=== PATIENT | male | born 1975 | race Caucasian/White ===

== ENCOUNTER 2016-08-18 21:08 | Emergency (ER) | payer SELFPAY ==
[~2016-08-18] VITALS: Ht 177.8 cm; Wt 99.6 kg
[~2016-08-18 21:08] MED LIST: CHLO25 PO; WELL150T PO
[2016-08-18 21:23] VITALS: BP 147/106; PULSE 108; RESP 18; TEMP 98.2; O2SAT 98
[2016-08-18] MEDS ORDERED: DIAZ5 PO (21:31)
[2016-08-18] MEDS ORDERED: CHLO25CA2 PO (21:41)
--- NOTE | 2016-08-18 21:41 | PD ---
HPI Chief Complaint: Alcohol/Drug Intoxication Time Seen by Provider: 21:23 Travel History International Travel<30 days: No Contact w/Intl Traveler<30days: No Traveled to known affect area: No History of Present Illness HPI To 41-year-old man presents emergent [place] of occult withdrawal symptoms. He states he's had trouble with alcoholism for the past 5 years or so since he is . He states she has periods lasting months of sobriety punctuated by of relapses. He's been drinking daily for the past month or so. States he wants to quit. He has a new job his insurance kicks in in August 27 is to start seeing a psychiatrist then. He's been treated for withdrawal before and had some Valium left over these been taken the past several days to help with her withdrawal symptoms. He ran out and drank some today. His moods been up and down. He emphatically denies any suicidal thoughts or homicidal thoughts. He does not own a gun. He does live by himself but he states his sister is around and is a source of support for him. 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 No other complaints. History Past Medical History Narrative Medical Alcoholism Gastric bypass Tetanus Vaccination: Unknown Influenza Vaccination: No Social History Alcohol Use: Yes (DAILY 04/30 5th vodka. quit 08/16/16) Tobacco Use: Yes (1 PPD) Allergies-Medications (Allergen,Severity, Reaction): Coded Allergies: No Known Allergies (Unverified , 12/05/15) Reported Meds & Prescriptions Reported Meds & Active Scripts Active Reported Valium (Diazepam) 5 Mg Tab 5 Mg PO DAILY Review of Systems Except as stated in HPI: all other systems reviewed are Neg Physical Exam Narrative GENERAL: Well-appearing 41-year-old man, tearful at times, no acute distress. SKIN: Warm and dry. CARDIOVASCULAR: Warm and well perfused. RESPIRATORY: Normal rate and effort. MUSCULOSKELETAL: No obvious deformities. NEUROLOGICAL: Awake and alert. No gross deficits. Psychological: Tearful at times. Congruent mood and affect. No evidence of psychosis. Insight and judgment appear good. No SI, no HI. Data Data Last Documented VS Vital Signs Date Time Temp Pulse Resp B/P Pulse Ox O2 Delivery O2 Flow Rate FiO2 08/18/16 21:23 98.2 108 18 147/106 98 MDM Medical Decision Making Medical Screen Exam Complete: Yes Emergency Medical Condition: Yes Differential Diagnosis Alcohol withdrawal, anxiety depression, substance induced mood disorder, other Narrative Course Medical decision making This a 41-year-old male presents emergency department cleaning of occult withdrawal symptoms. Symptoms are fairly mild. Does have some tachycardia. Minimal tremors. He looks well. He appears a good insight and judgment. He is trying to stay off alcohol. On August 27 she's can have insurance is been trying to follow-up with psychiatrist then. He has reasonable social support. He is not homicidal or suicidal. He's done well with Librium in the past. We' ll give him a small prescription for Librium, take as needed, and don't take before work. Return for any worsening symptoms. He is agreeable. Diagnosis Primary Impression: Alcohol withdrawal Patient Instructions: General Instructions Additional Instructions: Take Librium as prescribed. Follow-up with [facility] or private psychiatrist in the next several days. Return to the emergency department for any worsening depression thoughts, thoughts of hurting herself, or any other new or worsening symptoms. Med/Other Pt SpecificInfo: Prescription(s) given Scripts Chlordiazepoxide 25 Mg Cap25 Mg PO TID PRN (WITHDRAWAL) #15 CAP Ref 0 Prov:Aaron Jones MD 08/18/16 Disposition: 01 DISCHARGE HOME Condition: Stable Aaron Jones MD Aug 18, 2016 21:41
== END 2016-08-18 21:57 | disposition home or self-care (01) ==
LOC: PHED 21:08
DX: F10.239 Alcohol dependence with withdrawal, unspecified (principal); R00.0 Tachycardia, unspecified; G25.2 Other specified forms of tremor; F17.210 Nicotine dependence, cigarettes, uncomplicated; Z98.84 Bariatric surgery status
CPT/HCPCS: 99284

== ENCOUNTER 2017-06-21 13:30 | Inpatient (IN) | payer BC ==
[~2017-06-21] VITALS: Ht 172.7 cm; Wt 105.3 kg
[~2017-06-21 13:30] MED LIST changes: -CHLO25 PO; +CYCL10TA PO; +GABA600T PO; +HEPARIN-D5W 25,000 U/250 ML 250 ML IV PRN; -WELL150T PO
[2017-06-21 14:30] VITALS: BP 150/84; PULSE 95; RESP 24; TEMP 99.4; O2SAT 99
[2017-06-21 14:32] VITALS: O2SAT 98
[2017-06-21 15:17] LABS: HEMATOCRIT 34.6 % (39.0-51.0); HEMOGLOBIN 11.4 GM/DL (13.0-17.0); MEAN CELL VOLUME 85.1 FL (80.0-100.0); MEAN CORPUSCULAR HGB CONC 32.9 % (32.0-36.0); MEAN PLATELET VOLUME 7.3 FL (7.0-11.0); PLATELET COUNT 406 TH/MM3 (150-450); RED BLOOD COUNT 4.07 MIL/MM3 (4.50-5.90); RED CELL DISTRIBUTION WIDTH 19.9 % (11.6-17.2); WHITE BLOOD COUNT 11.1 TH/MM3 (4.0-11.0)
--- NOTE | 2017-06-21 15:31 | HHI.HP ---
[facility] Primary Care Physician Unknown Admission Diagnosis Diagnoses: Chief Complaint: chest pain Travel History International Travel<30 Days: No Contact w/Intl Traveler <30 Da: No History of Present Illness 41 y/o WM admitted for pulmonary emboli. Pt was in his [place] until the last 3-4 wks ago when he began experiencing some back pain and chest pain. He did develop some shortness of breath that was intermittent. He noted his chest pain was 10/10 from last night; pain is pleuritic in nature. Pt denies any recent travels or sedentary activity. Denies any hx of cancer or VTEs in the past. Review of Systems Except as stated in HPI: all other systems reviewed are Neg Past Family Social History Past Medical History none Allergies: Coded Allergies: No Known Allergies (Unverified Allergy, Unknown, 06/21/17) Family History no family hx of cancer or pulmonary emboli or DVT Social History lifelong hx of smoker, past usage of THC Physical Exam Vital Signs Vital Signs Date Time Temp Pulse Resp B/P (MAP) Pulse Ox O2 Delivery O2 Flow Rate FiO2 06/21/17 14:32 98 Nasal Cannula 2.00 06/21/17 14:30 99.4 95 24 150/84 (106) 99 Physical Exam V/S stable; afebrile GENERAL: This is a well-nourished, well-developed patient, in no apparent distress. SKIN: No rashes, ecchymoses or lesions. Cool and dry. HEAD: Atraumatic. Normocephalic. EYES: Extraocular motions intact. No scleral icterus. No injection or drainage. NECK: Trachea midline. No JVD or lymphadenopathy. Supple, nontender, no meningeal signs. CARDIOVASCULAR: Regular rate and rhythm without murmurs, gallops, or rubs. RESPIRATORY: Clear to auscultation. Breath sounds equal bilaterally. No wheezes , rales, or rhonchi. GASTROINTESTINAL: Abdomen soft, non-tender, nondistended. MUSCULOSKELETAL: Extremities without clubbing, cyanosis, or edema. NEUROLOGICAL: Awake and alert. Adequate muscle bulk and tone for age and habitus. Caprini VTE Risk Assessment Caprini VTE Risk Assessment: Mod/High Risk (score >= 2) Caprini Risk Assessment Model Point Value = 1 Point Value = 2 Point Value = 3 Point Value = 5 Age 41-60 Minor surgery BMI > 25 kg/m2 Swollen legs Varicose veins or History of unexplained or recurrent spontaneous Oral contraceptives or hormone replacement Sepsis (< 1 month) Serious lung disease, including pneumonia (< 1 month) Abnormal pulmonary function Acute myocardial infarction Congestive heart failure (< 1 month) History of inflammatory bowel disease Medical patient at bed rest Age 61-74 Arthroscopic surgery Major open surgery (> 45 min) Laparoscopic surgery (> 45 min) Malignancy Confined to bed (> 72 hours) Immobilizing plaster cast Central venous access Age >= 75 History of VTE Family history of VTE Factor V Leiden Prothrombin [id number] Lupus anticoagulant Anticardiolipin antibodies Elevated serum homocysteine Heparin-induced thrombocytopenia Other congenital or acquired thrombophilia Stroke (< 1 month) Elective arthroplasty Hip, pelvis, or leg fracture Acute spinal cord injury (< 1 month) Prophylaxis Regimen Total Risk Factor Score Risk Level Prophylaxis Regimen 0-1 Low Early ambulation 2 Moderate Order ONE of the following: *Sequential Compression Device (SCD) *Heparin 5000 units SQ BID 3-4 Higher Order ONE of the following medications: *Heparin 5000 units SQ TID *Enoxaparin/Lovenox 40 mg SQ daily (WT < 150 kg, CrCl > 30 mL/min) *Enoxaparin/Lovenox 30 mg SQ daily (WT < 150 kg, CrCl > 10-29 mL/min) *Enoxaparin/Lovenox 30 mg SQ BID (WT < 150 kg, CrCl > 30 mL/min) AND/OR *Sequential Compression Device (SCD) 5 or more Highest Order ONE of the following medications: *Heparin 5000 units SQ TID (Preferred with Epidurals) *Enoxaparin/Lovenox 40 mg SQ daily (WT < 150 kg, CrCl > 30 mL/min) *Enoxaparin/Lovenox 30 mg SQ daily (WT < 150 kg, CrCl > 10-29 mL/min) *Enoxaparin/Lovenox 30 mg SQ BID (WT < 150 kg, CrCl > 30 mL/min) AND *Sequential Compression Device (SCD) Assessment and Plan Assessment and Plan chest pain 2/2 bilateral pulmonary emboli - independently reviewed EKG and noted no changes concerning for NH or ischemia ; troponin neg - continue heparin drip - telemetry. Counseled to stop smoking. LLL PNA - I independently reviewed the CT scan and noted a substantial LLL infiltrate. Starting Rocephin and azithromycin heparin anticipate d/c on 06/22 if resp status stable Physician Certification 2 Midnight Certification Type: Admission for Inpatient Services Order for Inpatient Services The services are ordered in accordance with Medicare regulations or non- Medicare payer requirements, as applicable. In the case of services not specified as inpatient-only, they are appropriately provided as inpatient services in accordance with the 2-midnight benchmark. Estimated LOS (days): 3 3 days is the estimated time the patient will need to remain in the hospital, assuming treatment plan goals are met and no additional complications. Post-Hospital Plan: Home Tee Cordova MD Jun 21, 2017 15:31
[2017-06-21 15:32] LABS: INTERNATIONAL NORMALIZED RATIO 1.1 RATIO; PROTHROMBIN TIME - PATIENT 11.3 SEC (9.8-11.6)
[2017-06-21 16:00] VITALS: BP 135/78; PULSE 101; RESP 20; TEMP 100.5; O2SAT 92
[2017-06-21] MEDS: PROMETHAZINE/CODEINE 6.25 MG/10 MG/5 ML CUP PO PRN ×2 (16:41→22:01)
[2017-06-21] MEDS: cefTRIAXone INJ 1,000 MG in SODIUM CHLORIDE 0.9% INJ 100 ML IV SCH (16:43)
[2017-06-21] MEDS: AZITHROMYCIN INJ 500 MG in SODIUM CHLOR 0.9% 250 ML INJ 250 ML IV SCH (16:46)
[2017-06-21 20:00] VITALS: BP 134/82; PULSE 119; RESP 20; TEMP 102.3; O2SAT 95
[2017-06-21] MEDS: ACETAMINOPHEN 325 MG TAB PO PRN (22:02)
[2017-06-22] VITALS (12 sets, daily range): BP systolic 116–137; BP diastolic 69–84; PULSE 92–108; RESP 20; TEMP 98.9–101.4; O2SAT 92–96
[2017-06-22] MEDS: HEPARIN 25,000 UNITS-D5W 250 ML - PREMIX IV SCH ×3 (00:40→14:18)
[2017-06-22] MEDS: PROMETHAZINE/CODEINE 6.25 MG/10 MG/5 ML CUP PO PRN ×4 (03:52→23:43)
[2017-06-22] MEDS: ACETAMINOPHEN 325 MG TAB PO PRN ×3 (05:27→19:45)
[2017-06-22] MEDS ORDERED: LORazepam 1 MG TAB PO PRN (07:00)
[2017-06-22] MEDS ORDERED: FLUMAZENIL 0.5 MG/5 ML VIAL IV PUSH PRN (07:00)
[2017-06-22] MEDS ORDERED: LORazepam 2 MG TAB PO PRN (07:00)
[2017-06-22] MEDS ORDERED: LORazepam 2 MG/ML VIAL IV PUSH PRN ×4 (07:00)
[2017-06-22 10:15] LABS: BLOOD, URINE NEG (NEG); GLUCOSE,URINE 100 mg/dL (NEG); KETONE, URINE 15 mg/dL (NEG); NITRITE,URINE NEG (NEG); PH, URINE 5.5 (5.0-8.5); URINE LEUKOCYTE ESTERASE NEG (NEG)
[2017-06-22 11:23] LABS: BILIRUBIN, URINE NEG (NEG); RBC, URINE 0-3 /hpf (0-3); SQUAMOUS EPITHELIAL CELL URINE 0-5 /hpf (0-5); URINE COLOR YELLOW (YELLW/STRAW)
[2017-06-22 13:29] LABS: AUTOMATED NEUTROPHIL # 8.4 TH/MM3 (1.8-7.7); BASOPHIL # 0.2 TH/MM3 (0-0.2); BASOPHIL % 2.2 % (0.0-2.0); EOSINOPHIL # 0.4 TH/MM3 (0-0.4); EOSINOPHIL % 3.9 % (0.0-4.0); HEMATOCRIT 33.1 % (39.0-51.0); HEMOGLOBIN 10.4 GM/DL (13.0-17.0); LYMPH % 8.5 % (9.0-44.0); LYMPHOCYTE # 0.9 TH/MM3 (1.0-4.8); MEAN CELL VOLUME 85.4 FL (80.0-100.0); MEAN CORPUSCULAR HEMOGLOBIN 26.9 PG (27.0-34.0); MEAN CORPUSCULAR HGB CONC 31.5 % (32.0-36.0); MEAN PLATELET VOLUME 7.4 FL (7.0-11.0); MONOCYTE # 0.9 TH/MM3 (0-0.9); NEUT % 77.4 % (16.0-70.0); PLATELET COUNT 435 TH/MM3 (150-450); RED BLOOD COUNT 3.88 MIL/MM3 (4.50-5.90); RED CELL DISTRIBUTION WIDTH 19.7 % (11.6-17.2); WHITE BLOOD COUNT 10.8 TH/MM3 (4.0-11.0)
[2017-06-22 13:44] LABS: CHLORIDE 106 MEQ/L (98-107); SODIUM (NA) 139 MEQ/L (136-145)
[2017-06-22 13:49] LABS: ALBUMIN 2.4 GM/DL (3.4-5.0); BLOOD UREA NITROGEN 6 MG/DL (7-18); GLUCOSE,RANDOM 106 MG/DL (74-106)
[2017-06-22 13:52] LABS: ALT (GPT) 13 U/L (12-78); AST (GOT) 19 U/L (15-37); CREATININE 0.78 MG/DL (0.60-1.30); GLOMERULAR FILTRATION RATE 109 ML/MIN (>89)
[2017-06-22 13:54] LABS: TOTAL BILIRUBIN ADULT 0.8 MG/DL (0.2-1.0); TOTAL PROTEIN 6.5 GM/DL (6.4-8.2)
[2017-06-22 13:55] LABS: ALKALINE PHOSPHATASE 219 U/L (45-117)
[2017-06-22] MEDS: ONDANSETRON HCL 4 MG/2 ML VIAL IV PUSH PRN (14:07)
[2017-06-22] MEDS ORDERED: HEPARIN SODIUM - IV 10,000 UNITS/10 ML VIAL IV PUSH PRN (14:15)
[2017-06-22] MEDS: HEPARIN SODIUM - IV 10,000 UNITS/10 ML VIAL IV PUSH PRN (14:15)
--- NOTE | 2017-06-22 16:36 | HHI.PR ---
Subjective Remarks Patient running fever overnight max is 101.4 He reported chest pain 3 out of 10 bilaterally Mild short of breath on walking Objective Vitals Vital Signs Date Time Temp Pulse Resp B/P (MAP) Pulse Ox O2 Delivery O2 Flow Rate FiO2 06/22/17 15:00 98.9 103 20 136/83 (100) 95 06/22/17 13:31 18 06/22/17 11:50 99.5 108 20 132/83 (99) 95 06/22/17 08:00 92 06/22/17 07:50 99.9 95 20 131/69 (89) 92 06/22/17 05:25 101.4 06/22/17 04:00 100.6 102 20 137/84 (101) 95 06/22/17 03:30 100.7 06/22/17 03:17 101 06/22/17 00:00 101.1 108 20 116/69 (85) 93 06/21/17 20:00 102.3 119 20 134/82 (99) 95 I/O 06/21/17 06/21/17 06/21/17 06/22/17 06/22/17 06/22/17 07:00 15:00 23:00 07:00 15:00 23:00 Intake Total 338.3 ml Output Total 775 ml Balance -436.7 ml Intake IV Total 338.3 ml Output Urine Total 775 ml # Voids 1 # Bowel Movements 0 Result Diagram: 06/22/17 1315 06/22/17 1315 Objective Remarks GENERAL: This is a well-nourished, well-developed patient, in no apparent distress. SKIN: No rashes, warm and dry HEAD: Atraumatic. Normocephalic. EYES: Pupils equal round and reactive. Extraocular motions intact. No scleral icterus. ENT: Nose without bleeding, or drainage, Airway patent. NECK: Trachea midline. Supple CARDIOVASCULAR: Regular rate and rhythm without murmurs, gallops, or rubs. RESPIRATORY: Left basilar crackles GASTROINTESTINAL: Abdomen soft, non-tender, nondistended. Positive bowel sounds MUSCULOSKELETAL: Extremities without clubbing, cyanosis, or edema. Pedal pulses appreciated NEUROLOGICAL: Awake and alert. Moves all extremity. Normal speech.no focal neurological deficit A/P Assessment and Plan 41 years old male is admitted with chest pain short of breath Bilateral PE Left lower lobe pneumonia Plan: Continue current care with O2, DuoNeb Continue heparin drip Consult pulmonary Rocephin and Zithromax Monitor clinical improvement Ashly Chavez MD Jun 22, 2017 16:36
[2017-06-22] MEDS: cefTRIAXone INJ 1,000 MG in SODIUM CHLORIDE 0.9% INJ 100 ML IV SCH (17:39)
[2017-06-22] MEDS: AZITHROMYCIN INJ 500 MG in SODIUM CHLOR 0.9% 250 ML INJ 250 ML IV SCH (18:16)
[2017-06-23] VITALS (8 sets, daily range): BP systolic 135–149; BP diastolic 86–97; PULSE 81–106; RESP 14–20; TEMP 98.6–101; O2SAT 94–96
[2017-06-23] MEDS: ACETAMINOPHEN 325 MG TAB PO PRN ×2 (04:41→20:19)
[2017-06-23] MEDS: PROMETHAZINE/CODEINE 6.25 MG/10 MG/5 ML CUP PO PRN ×3 (06:02→18:21)
[2017-06-23 11:23] LABS: AUTOMATED NEUTROPHIL # 8.2 TH/MM3 (1.8-7.7); BASOPHIL # 0.2 TH/MM3 (0-0.2); BASOPHIL % 1.4 % (0.0-2.0); EOSINOPHIL # 0.6 TH/MM3 (0-0.4); EOSINOPHIL % 5.3 % (0.0-4.0); HEMATOCRIT 32.1 % (39.0-51.0); HEMOGLOBIN 10.6 GM/DL (13.0-17.0); LYMPH % 9.6 % (9.0-44.0); MEAN CELL VOLUME 85.1 FL (80.0-100.0); MEAN CORPUSCULAR HEMOGLOBIN 28.3 PG (27.0-34.0); MEAN CORPUSCULAR HGB CONC 33.2 % (32.0-36.0); MONO % 7.5 % (0.0-8.0); MONOCYTE # 0.8 TH/MM3 (0-0.9); NEUT % 76.2 % (16.0-70.0); PLATELET COUNT 498 TH/MM3 (150-450); RED BLOOD COUNT 3.77 MIL/MM3 (4.50-5.90); WHITE BLOOD COUNT 10.8 TH/MM3 (4.0-11.0)
--- NOTE | 2017-06-23 12:47 | MB ---
cc: LYNNETTE CHURCH DATE OF CONSULTATION: 06/23/2017 REASON FOR CONSULTATION: Pulmonary embolism. HISTORY OF PRESENT ILLNESS Mr. Velásquez is a 41-year-old male who was doing well until about 3 or 4 weeks ago when he started developing intermittent chest pains and intermittent shortness of breath, however, last night had become so severe, he had to come to the emergency room. The pain was sharp, increased with breathing and bilateral CT angiogram was undertaken in the emergency room with evidence of bilateral pulmonary emboli. The patient was started on heparin therapy. His chest pain has improved. He denies history of fever, chills, cough or expectoration. No hemoptysis. PAST MEDICAL HISTORY: Denies history of diabetes, hypertension, heart disease. ALLERGIES: None known to medication. FAMILY HISTORY: No history of hypercoagulability. SOCIAL HISTORY: Long smoking history of over 20 pack years. He does not use drugs. He does not drink alcohol. SYSTEM REVIEW: 12 point review of systems as per HPI and past history otherwise negative. PHYSICAL EXAMINATION: The patient is alert. VITAL SIGNS:. Temperature is 98 degrees Fahrenheit. Pulse 88, respiratory rate 20, blood pressure 130/80, oxygen saturation 95% on room air. HEENT: Exam unremarkable. Eyes without icterus. Neck: Without adenopathy or thyroid enlargement. Central trachea. Chest: Without dullness to percussion, clear to auscultation. Cardiac exam: PMI not appreciated. S1-S2 audible. No murmur, no rub. Abdomen: Lax, audible bowel sounds. Extremities: No clubbing, cyanosis or edema. LABORATORY DATA White count 10,000, hemoglobin 10, hematocrit 32, platelets at 498,000, sodium 139, potassium 3.6, BUN 6, creatinine 0.7. IMPRESSION Bilateral pulmonary emboli. No evidence of DVT on examining the patient. PLAN: 1. The patient will be continued on anticoagulant therapy. 2. Hematology consultation for hypercoagulable state. 3. Bilateral lower extremity, ultrasound to rule out DVT. I do thank you for asking me to partake in Mr. Velásquez's care. Lynnette Church MD WWW/PEPE /11:57 AM /12:14 PM
--- NOTE | 2017-06-23 13:18 | RADRPT ---
EXAM DATE/TIME: 06/23/2017 12:19 [place] COMPARISON: No previous studies available for comparison. INDICATIONS : Pulmonary embolism. MEDICAL HISTORY : Gastric bypass. SURGICAL HISTORY : Orthopedic surgery, right knee. ENCOUNTER: Initial ACUITY: 1 day PAIN SCORE: 0/10 LOCATION: Bilateral legs. TECHNIQUE: Venous ultrasound of the left and right leg was performed from the inguinal ligament to the proximal calf. Real-time, color Doppler and spectral tracing, compression and augmentation techniques were us ed. FINDINGS: RIGHT LEG: There is normal compressibility of the deep venous system from the inguinal region to the proximal ca lf. No echogenic clot is seen in the lumen of the common femoral, femoral, popliteal veins. However, there is nonocclusive thrombus in the right posterior tibial vein within the calf.. LEFT LEG: There is normal compressibility of the deep venous system from the inguinal region to the proximal ca lf. No echogenic clot is seen in the lumen of the common femoral, femoral, popliteal veins. There is occlusive thrombus in the left posterior tibial vein within the calf. CONCLUSION: 1. There is bilateral DVT in the posterior tibial veins of the right and left lower extremities withi n the calf. 2. No evidence of DVT above the knee into the pelvis. Abhijit Muro MD on June 23, 2017 at 13:15 Board Certified Radiologist. This report was verified electronically.
--- NOTE | 2017-06-23 13:22 | HHI.PR ---
Subjective Remarks Patient patient ran a fever 101 overnight, still having short of breath on exertion Pulmonary to see patient today Continue on heparin drip and on antibiotic Objective Vitals Vital Signs Date Time Temp Pulse Resp B/P (MAP) Pulse Ox O2 Delivery O2 Flow Rate FiO2 06/23/17 12:00 98.6 98 14 149/97 (114) 95 06/23/17 08:00 98.7 99 16 141/92 (108) 94 06/23/17 04:00 101.0 106 20 139/91 (107) 94 06/23/17 00:00 98.9 93 20 137/86 (103) 96 06/22/17 23:00 100 06/22/17 21:00 95 21 06/22/17 20:00 101.0 106 20 125/83 (97) 96 06/22/17 15:00 98.9 103 20 136/83 (100) 95 06/22/17 13:31 18 I/O 06/22/17 06/22/17 06/22/17 06/23/17 06/23/17 06/23/17 07:00 15:00 23:00 07:00 15:00 23:00 Intake Total 338.3 ml 133 ml 821.5 ml 720 ml Output Total 775 ml 350 ml 725 ml Balance -436.7 ml 133 ml 471.5 ml -5 ml Intake Oral 343 ml 720 ml IV Total 338.3 ml 133 ml 478.5 ml Output Urine Total 775 ml 350 ml 725 ml # Voids 1 1 3 # Bowel Movements 0 1 0 Result Diagram: 06/23/17 1059 06/22/17 1315 Objective Remarks GENERAL: This is a well-nourished, well-developed patient, in no apparent distress. SKIN: No rashes, warm and dry HEAD: Atraumatic. Normocephalic. EYES: Pupils equal round and reactive. Extraocular motions intact. No scleral icterus. ENT: Nose without bleeding, or drainage, Airway patent. NECK: Trachea midline. Supple CARDIOVASCULAR: Regular rate and rhythm without murmurs, gallops, or rubs. RESPIRATORY: Left basilar crackles GASTROINTESTINAL: Abdomen soft, non-tender, nondistended. Positive bowel sounds MUSCULOSKELETAL: Extremities without clubbing, cyanosis, or edema. Pedal pulses appreciated NEUROLOGICAL: Awake and alert. Moves all extremity. Normal speech.no focal neurological deficit A/P Assessment and Plan 41 years old male is admitted with chest pain short of breath Bilateral PE Left lower lobe pneumonia Plan: Continue current care with O2, DuoNeb Continue heparin drip, probably switch to one of the NOAC at discharge Patient pulmonary consultation recommended bilateral lower extremity ultrasound which showed below-knee DVT bilaterally, hematology consultation placed Rocephin and Zithromax Monitor clinical improvement Discharge Planning When fever resolved, he will need to be on anticoagulation after discharge Ashly Chavez MD Jun 23, 2017 13:22
[2017-06-23] MEDS: cefTRIAXone INJ 1,000 MG in SODIUM CHLORIDE 0.9% INJ 100 ML IV SCH (16:04)
[2017-06-23] MEDS: HEPARIN SODIUM - IV 10,000 UNITS/10 ML VIAL IV PUSH PRN (16:09)
[2017-06-23] MEDS: HEPARIN 25,000 UNITS-D5W 250 ML - PREMIX IV SCH (16:16)
[2017-06-23] MEDS: AZITHROMYCIN INJ 500 MG in SODIUM CHLOR 0.9% 250 ML INJ 250 ML IV SCH (16:56)
--- NOTE | 2017-06-23 17:33 | MB ---
cc: PRABHU BARRETT DATE OF CONSULTATION 06/23/2017 REASON FOR CONSULTATION Patient with unprovoked pulmonary embolism. Recommendations for anticoagulation and to assess for hypercoagulable state. CHIEF COMPLAINT Chest pain and shortness of breath. 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 He became progressively short of breath over the past 3 weeks. He was also having intermittent cough which was exacerbated at night. He says that he had difficult time "catching his breath". He presented to the emergency room where a Doppler ultrasound of lower extremity was obtained which showed bilateral DVTs in the posterior tibial veins of the right and left lower extremities within the calf. There is no evidence of DVT above the knee into the pelvis. He also had a CT angiogram which showed extensive bilateral pulmonary emboli. The patient was started on heparin drip. He has a past medical history of more than 20 pack-years of tobacco abuse. He states that he started smoking cigarettes when he was in 9th grade. His only other medication is Gabapentin which he takes for peripheral neuropathy. 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 The patient has not had any recent prolonged car or air travel. He is not taking any supplements or herbs. He is not taking any exogenous testosterone. He states that he is quite active. He does not have any family history of blood disorders / blood clots such as DVT or PE. His brothers and sisters are healthy and they do not have any blood clots or any history of PE of DVT. REVIEW OF SYSTEMS A comprehensive review of systems was completed which is negative except as described in HPI. PAST MEDICAL HISTORY 1. Peripheral neuropathy. 2. History of tobacco abuse. 3. History of knee surgery in 2012. FAMILY HISTORY The family history was reviewed and there is no history of any malignancies, pulmonary emboli, DVT, etc. SOCIAL HISTORY He has more than 25 pack-years of smoking history. He has used marijuana in the past. No other illicit drug use. 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 MEDICATIONS 1. Heparin GTT. 2. Zofran. 3. Ativan. 4. Tylenol. 5. Azithromycin. 6. Ceftriaxone. 7. Phenergan. ALLERGIES NO KNOWN DRUG ALLERGIES. LABORATORY DATA WBC 10.8, hemoglobin 10.6, MCV 85.1, platelet count 498. Serum chemistries show sodium 139, potassium 3.6, chloride 106, CO2 24, anion gap of 9, BUN is 6, creatinine is 0.78, GFR is 109, lactic acid is 0.7, calcium is 8. Total bilirubin is 0.8, AST is 19, ALT 13. Alkaline phos is 219. Troponins are less than 0.02. Albumin is 2.4. IMAGING STUDIES Imaging was reviewed and documented as above in the HPI. ASSESSMENT/PLAN This is a 41-year-old male with a past medical history of tobacco abuse, history of peripheral neuropathy and history of knee surgery who presents to the emergency department with a 3-week history of progressive dyspnea, cough and chest discomfort. 1. Bilateral pulmonary embolism as well as bilateral lower extremity thromboses involving the right and lower extremity tibial veins. The precipitating factors include tobacco abuse. He has not had any recent prolonged car or air travel. He is not any medications that would cause hypercoagulability. He has not taking exogenous testosterone. Under these circumstances, I would recommend indefinite anticoagulation. We will obtain a hypercoagulable workup, however, some of the workup cannot be completed at this time since the results will be unreliable while he is on heparin and has acute thrombosis. We can reliably check for factor V Leiden, antiphospholipid antibodies, prothrombin mutation, ALBERT and homocysteine levels. We will defer testing for anti III deficiency, activated protein C resistance, protein C and S again, these will be deferred. The findings on the hypercoagulable workup will not management trainee program stores at this time. I would recommend anticoagulation with Eliquis. I have discussed this with the patient at length. His parents were also present during this conversation. I have strongly urged him to abstain from smoking cigarettes. The risks of further expansion/development of PE and DVT and a risk of cancer was also discussed with the patient. I would recommend starting Eliquis at 10 milligrams twice daily for 7 days followed by 5 mg twice daily. The patient should follow up in the hematology clinic with me in 4-6 weeks. The patient is cleared to be discharged from a hematology standpoint once he is deemed stable. 2. Tobacco abuse counseling was done. 3. History of the knee surgery. 4. History of restless leg currently on Gabapentin. Thank you for allowing me to participate in the care of this patient. MD TONNY Ramos/SEBASTIAN /4:33 PM /4:58 PM [facility]
[2017-06-23] MEDS ORDERED: LORA-474 PO (17:55)
[2017-06-23] MEDS: ONDANSETRON HCL 4 MG/2 ML VIAL IV PUSH PRN (20:21)
[2017-06-24] VITALS (8 sets, daily range): BP systolic 120–157; BP diastolic 82–103; PULSE 76–113; RESP 14–20; TEMP 96–101; O2SAT 93–97
[2017-06-24] MEDS: PROMETHAZINE/CODEINE 6.25 MG/10 MG/5 ML CUP PO PRN ×3 (00:12→13:05)
[2017-06-24] MEDS ORDERED: ACETAMINOPHEN/HYDROcodone 325 MG/5 MG TAB PO ONE (00:45)
[2017-06-24] MEDS: HEPARIN 25,000 UNITS-D5W 250 ML - PREMIX IV SCH ×2 (04:40→15:48)
[2017-06-24 06:07] LABS: AUTOMATED NEUTROPHIL # 6.8 TH/MM3 (1.8-7.7); BASOPHIL % 0.3 % (0.0-2.0); EOSINOPHIL # 0.7 TH/MM3 (0-0.4); EOSINOPHIL % 7.1 % (0.0-4.0); HEMATOCRIT 32.1 % (39.0-51.0); HEMOGLOBIN 10.4 GM/DL (13.0-17.0); LYMPH % 20.1 % (9.0-44.0); LYMPHOCYTE # 2.1 TH/MM3 (1.0-4.8); MEAN CELL VOLUME 85.2 FL (80.0-100.0); MEAN CORPUSCULAR HEMOGLOBIN 27.7 PG (27.0-34.0); MEAN CORPUSCULAR HGB CONC 32.5 % (32.0-36.0); MEAN PLATELET VOLUME 7.2 FL (7.0-11.0); MONO % 8.7 % (0.0-8.0); MONOCYTE # 0.9 TH/MM3 (0-0.9); NEUT % 63.8 % (16.0-70.0); PLATELET COUNT 500 TH/MM3 (150-450); RED BLOOD COUNT 3.77 MIL/MM3 (4.50-5.90); RED CELL DISTRIBUTION WIDTH 18.5 % (11.6-17.2); WHITE BLOOD COUNT 10.5 TH/MM3 (4.0-11.0)
[2017-06-24] MEDS: ONDANSETRON HCL 4 MG/2 ML VIAL IV PUSH PRN (06:09)
[2017-06-24] MEDS ORDERED: GABA800T PO (07:46)
[2017-06-24] MEDS ORDERED: TRAM50 PO (07:58)
[2017-06-24] MEDS: traMADol HCL 50 MG TAB PO SCH ×3 (08:45→20:37)
[2017-06-24] MEDS: ACETAMINOPHEN 325 MG TAB PO PRN ×2 (09:07→20:37)
[2017-06-24] MEDS: LORazepam 1 MG TAB PO SCH ×2 (09:08→20:37)
[2017-06-24] MEDS: GABAPENTIN 400 MG CAP PO SCH ×2 (09:08→20:36)
[2017-06-24] MEDS ORDERED: APIXABAN 5 MG TABLET PO SCH ×2 (12:00→21:00)
--- NOTE | 2017-06-24 12:21 | HHI.PR ---
Subjective Remarks 41 y/o WM admitted for pulmonary emboli. Pt was in his USOH until the last 3-4 wks ago when he began experiencing some back pain and chest pain. He did develop some shortness of breath that was intermittent. He noted his chest pain was 10/10 from last night; pain is pleuritic in nature. Pt denies any recent travels or sedentary activity. Denies any hx of cancer or VTEs in the past. 06-22 Patient running fever overnight max is 101.4 He reported chest pain 3 out of 10 bilaterally Mild short of breath on walking 06-23 Patient patient ran a fever 101 overnight, still having short of breath on exertion Pulmonary to see patient today Continue on heparin drip and on antibiotic 06-24 STILL HAVING FEVERS SWITCH TO ELIQUIS 5MG PO BID STARTING TODAY DW RN AND PT AND CM AM LABS Add DuDon's incentive spirometry and Mucinex Objective Vitals Vital Signs Date Time Temp Pulse Resp B/P (MAP) Pulse Ox O2 Delivery O2 Flow Rate FiO2 06/24/17 08:00 99.6 113 14 120/103 (109) 95 06/24/17 04:00 99.5 88 20 131/82 (98) 95 06/24/17 00:00 98.8 83 20 123/82 (96) 95 06/23/17 23:00 81 06/23/17 20:00 94 21 06/23/17 20:00 101.0 94 20 135/87 (103) 96 06/23/17 16:00 99.7 98 16 145/86 (105) 94 06/23/17 15:00 106 I/O 06/23/17 06/23/17 06/23/17 06/24/17 06/24/17 06/24/17 07:00 15:00 23:00 07:00 15:00 23:00 Intake Total 720 ml 531.5 ml 480 ml Output Total 725 ml 900 ml Balance -5 ml 531.5 ml -420 ml Intake Oral 720 ml 60 ml 480 ml IV Total 471.5 ml Output Urine Total 725 ml 900 ml # Voids 3 4 4 # Bowel Movements 0 1 0 Result Diagram: 06/24/17 0510 06/22/17 1315 Other Results Laboratory Tests Test 06/21/17 15:08 06/21/17 21:58 06/22/17 06:44 06/22/17 10:05 White Blood Count 11.1 TH/MM3 Red Blood Count 4.07 MIL/MM3 Hemoglobin 11.4 GM/DL Hematocrit 34.6 % Mean Corpuscular Volume 85.1 FL Mean Corpuscular Hemoglobin 28.0 PG Mean Corpuscular Hemoglobin Concent 32.9 % Red Cell Distribution Width 19.9 % Platelet Count 406 TH/MM3 Mean Platelet Volume 7.3 FL Prothrombin Time 11.3 SEC Prothromb Time International Ratio 1.1 RATIO Activated Partial Thromboplast Time 37.4 SEC 37.5 SEC 42.0 SEC Urine Collection Type CLEAN CATCH Urine Color YELLOW Urine Turbidity CLEAR Urine pH 5.5 Urine Specific [place] 1.001 Urine Protein NEG mg/dL Urine Glucose (UA) 100 mg/dL Urine Ketones 15 mg/dL Urine Occult Blood NEG Urine Nitrite NEG Urine Bilirubin NEG Urine Leukocyte Esterase NEG Urine RBC 0-3 /hpf Urine Squamous Epithelial Cells 0-5 /hpf Microscopic Urinalysis Comment CULT NOT INDICATED Urine Collection Time 10:05 Test 06/22/17 13:15 06/22/17 19:53 06/23/17 08:14 06/23/17 10:59 White Blood Count 10.8 TH/MM3 10.8 TH/MM3 Red Blood Count 3.88 MIL/MM3 3.77 MIL/MM3 Hemoglobin 10.4 GM/DL 10.6 GM/DL Hematocrit 33.1 % 32.1 % Mean Corpuscular Volume 85.4 FL 85.1 FL Mean Corpuscular Hemoglobin 26.9 PG 28.3 PG Mean Corpuscular Hemoglobin Concent 31.5 % 33.2 % Red Cell Distribution Width 19.7 % 20.0 % Platelet Count 435 TH/MM3 498 TH/MM3 Mean Platelet Volume 7.4 FL 7.0 FL Neutrophils (%) (Auto) 77.4 % 76.2 % Lymphocytes (%) (Auto) 8.5 % 9.6 % Monocytes (%) (Auto) 8.0 % 7.5 % Eosinophils (%) (Auto) 3.9 % 5.3 % Basophils (%) (Auto) 2.2 % 1.4 % Neutrophils # (Auto) 8.4 TH/MM3 8.2 TH/MM3 Lymphocytes # (Auto) 0.9 TH/MM3 1.0 TH/MM3 Monocytes # (Auto) 0.9 TH/MM3 0.8 TH/MM3 Eosinophils # (Auto) 0.4 TH/MM3 0.6 TH/MM3 Basophils # (Auto) 0.2 TH/MM3 0.2 TH/MM3 CBC Comment DIFF FINAL DIFF FINAL Differential Comment Activated Partial Thromboplast Time 39.2 SEC 41.4 SEC 44.4 SEC Blood Urea Nitrogen 6 MG/DL Creatinine 0.78 MG/DL Random Glucose 106 MG/DL Total Protein 6.5 GM/DL Albumin 2.4 GM/DL Calcium Level 8.0 MG/DL Alkaline Phosphatase 219 U/L Aspartate Amino Transf (AST/SGOT) 19 U/L Alanine Aminotransferase (ALT/SGPT) 13 U/L Total Bilirubin 0.8 MG/DL Sodium Level 139 MEQ/L Potassium Level 3.6 MEQ/L Chloride Level 106 MEQ/L Carbon Dioxide Level 24.0 MEQ/L Anion Gap 9 MEQ/L Estimat Glomerular Filtration Rate 109 ML/MIN Lactic Acid Level 0.7 mmol/L Test 06/23/17 15:02 06/23/17 18:43 06/23/17 20:54 06/24/17 03:30 Activated Partial Thromboplast Time 39.4 SEC 47.7 SEC 38.9 SEC Test 06/24/17 05:10 06/24/17 09:20 White Blood Count 10.5 TH/MM3 Red Blood Count 3.77 MIL/MM3 Hemoglobin 10.4 GM/DL Hematocrit 32.1 % Mean Corpuscular Volume 85.2 FL Mean Corpuscular Hemoglobin 27.7 PG Mean Corpuscular Hemoglobin Concent 32.5 % Red Cell Distribution Width 18.5 % Platelet Count 500 TH/MM3 Mean Platelet Volume 7.2 FL Neutrophils (%) (Auto) 63.8 % Lymphocytes (%) (Auto) 20.1 % Monocytes (%) (Auto) 8.7 % Eosinophils (%) (Auto) 7.1 % Basophils (%) (Auto) 0.3 % Neutrophils # (Auto) 6.8 TH/MM3 Lymphocytes # (Auto) 2.1 TH/MM3 Monocytes # (Auto) 0.9 TH/MM3 Eosinophils # (Auto) 0.7 TH/MM3 Basophils # (Auto) 0.0 TH/MM3 CBC Comment DIFF FINAL Differential Comment Activated Partial Thromboplast Time 45.0 SEC Imaging Last Impressions Lower Extremity Ultrasound 06/23/17 0000 Signed Impressions: Service Date/Time: Friday, June 23, 2017 12:19 - CONCLUSION: 1. There is bilateral DVT in the posterior tibial veins of the right and left lower extremities within the calf. 2. No evidence of DVT above the knee into the pelvis. Abhijit Muro MD Objective Remarks GENERAL: And oriented 3 talkative and cooperative alert and oriented SKIN: Warm and dry. HEAD: Atraumatic. Normocephalic. EYES: Pupils equal and round. No scleral icterus. No injection or drainage. Extraocular muscles intact ENT: No nasal bleeding or discharge. Mucous membranes pink and moist. Tongue is midline NECK: Trachea midline. No JVD. Supple CARDIOVASCULAR: Regular rate and rhythm. S1 and S2 no S3 or S4 no heave or thrill or rub or gallop RESPIRATORY: No accessory muscle use. Clear to auscultation. Breath sounds equal bilaterally. GASTROINTESTINAL: Abdomen soft, non-tender, nondistended. Hepatic and splenic margins not palpable. MUSCULOSKELETAL: Extremities without clubbing, cyanosis, or edema. No obvious deformities. NEUROLOGICAL: Awake and alert. No obvious cranial nerve deficits. Motor grossly within normal limits. Five out of 5 muscle strength in the arms and legs. Normal speech. PSYCHIATRIC: Appropriate mood and affect; insight and judgment normal. Procedures NONE Medications and IVs Current Medications Heparin Sodium/ Dextrose 250 ml @ 0 mls/hr TITRATE PRN IV Coagulation Management; Start 06/21/17 at 12:30; Status UNV Heparin Sodium/ Dextrose 250 ml @ 18 mls/hr TITRATE IV Last administered on at 04:40; Start 06/21/17 at 15:00; Stop 06/24/17 at 14:00 Promethazine HCl/ Codeine (Phenergan-Codeine Liq) 5 ml Q6H PRN PO cough Last administered on 06/24/17at 06:10; Start 06/21/17 at 15:30 Ceftriaxone Sodium 1000 mg/ Sodium Chloride 100 ml @ 200 mls/hr Q24H IV Last administered on 06/23/17at 16:04; Start 06/21/17 at 16:00 Azithromycin 500 mg/Sodium Chloride 250 ml @ 250 mls/hr Q24H IV Last administered on 06/23/17at 16:56; Start 06/21/17 at 17:00 Acetaminophen (Tylenol) 650 mg Q4H PRN PO fever > 101/RAMOS Last administered on at 09:07; Start 06/21/17 at 21:30 Flumazenil (Romazicon Inj) 0.2 mg Q1M PRN IV PUSH SEE LABEL COMMENTS; Start at 07:00 Lorazepam (Ativan) 1 mg Q4H PRN PO CIWA 8 - 10 Last administered on 06/23/17at 18:18; Start 06/22/17 at 07:00 Lorazepam (Ativan Inj) 1 mg Q4H PRN IV PUSH CIWA 8 - 10; Start 06/22/17 at 07: 00 Lorazepam (Ativan) 2 mg Q2H PRN PO CIWA 11-14; Start 06/22/17 at 07:00 Lorazepam (Ativan Inj) 2 mg Q2H PRN IV PUSH CIWA 11-14; Start 06/22/17 at 07:00 Lorazepam (Ativan Inj) 2 mg Q1H PRN IV PUSH CIWA 15-20; Start 06/22/17 at 07:00 Lorazepam (Ativan Inj) 2 mg Q15M PRN IV PUSH CIWA > 20; Start 06/22/17 at 07:00 Ondansetron HCl (Zofran Inj) 4 mg Q6HR PRN IV PUSH nausea Last administered on 06/24/17at 06:09; Start 06/22/17 at 13:15 Heparin Sodium (Porcine) (Heparin Inj) 5,000 units UNSCH PRN IV PUSH aPTT less than 25; Start 06/22/17 at 14:15 Heparin Sodium (Porcine) (Heparin Inj) 2,500 units UNSCH PRN IV PUSH aPTT 25 to 39 Last administered on 06/23/17at 16:09; Start 06/22/17 at 14:15 Acetaminophen/ Hydrocodone Bitart ([place] 5-325 Mg) 1 tab ONCE ONCE PO Last administered on 06/24/17at 00:51; Start 06/24/17 at 00:45; Stop 06/24/17 at 00:48 ; Status DC Gabapentin (Neurontin) 800 mg BID PO Last administered on 06/24/17at 09:08; Start 06/24/17 at 09:00 Lorazepam (Ativan) 1 mg BID PO Last administered on 06/24/17at 09:08; Start at 09:00 Tramadol HCl (Ultram) 50 mg Q8HR PO Last administered on 06/24/17at 08:45; Start 06/24/17 at 08:45 Apixaban (Eliquis) 5 mg BID PO ; Start 06/24/17 at 12:00 A/P Problem List: (1) Fever ICD Code: R50.9 - Fever, unspecified (2) Anxiety ICD Code: F41.9 - Anxiety disorder, unspecified (3) Chronic pain ICD Code: G89.29 - Other chronic pain (4) Pneumonia ICD Code: J18.9 - Pneumonia, unspecified organism (5) Pulmonary emboli ICD Code: I26.99 - Other pulmonary embolism without acute cor pulmonale (6) DVT, bilateral lower limbs ICD Code: I82.403 - Acute embolism and thrombosis of unspecified deep veins of lower extremity, bilateral Assessment and Plan 41 years old male is admitted with chest pain short of breath Bilateral PE Bilateral lower extremity DVTs will switch to Eliquis 5 mg by mouth twice a day and transition off heparin drip Left lower lobe pneumonia continue on DuoNeb's with Rocephin and Zithromax Anxiety resume home anxiety medications restart his Ativan History of alcohol abuse continue on CIWA protocol Chronic pain restart his gabapentin Plan: Continue current care with O2, DuoNeb Continue heparin drip, probably switch to one of the NOAC at discharge switch off heparin and transition to Eliquis 5 mg by mouth twice daily Patient pulmonary consultation recommended bilateral lower extremity ultrasound which showed below-knee DVT bilaterally, hematology consultation placed Rocephin and Zithromax Monitor clinical improvement Discharge Planning Await fever improvement Discharge Planning Await fever improvement Wesley Bernard DO Jun 24, 2017 12:21
[2017-06-24] MEDS ORDERED: RESP: ALBUTEROL 2.5 MG/IPRATROPIUM 0.5 MG NEB (PRN) NEB (13:00)
[2017-06-24] MEDS: guaiFENesin E.R. 600 MG TAB PO SCH ×2 (13:02→20:36)
[2017-06-24] MEDS: RESP: ALBUTEROL 2.5 MG/IPRATROPIUM 0.5 MG NEB (SCH) NEB ×2 (15:10→21:06)
[2017-06-24] MEDS: cefTRIAXone INJ 1,000 MG in SODIUM CHLORIDE 0.9% INJ 100 ML IV SCH (15:53)
--- NOTE | 2017-06-24 16:02 | HHI.PR ---
Subjective Remarks ALERT NO SOB HEMATOLOGY NOTE APPRECIATED Objective Vital Signs Date Time Temp Pulse Resp B/P (MAP) Pulse Ox O2 Delivery O2 Flow Rate FiO2 06/24/17 15:13 93 Nasal Cannula 2.00 06/24/17 12:00 96.0 76 16 157/96 (116) 97 06/24/17 12:00 98.6 91 14 142/96 (111) 96 06/24/17 08:00 99.6 113 14 120/103 (109) 95 06/24/17 04:00 99.5 88 20 131/82 (98) 95 06/24/17 00:00 98.8 83 20 123/82 (96) 95 06/23/17 23:00 81 06/23/17 20:00 94 21 06/23/17 20:00 101.0 94 20 135/87 (103) 96 I/O 06/23/17 06/23/17 06/23/17 06/24/17 06/24/17 06/24/17 07:00 15:00 23:00 07:00 15:00 23:00 Intake Total 720 ml 531.5 ml 480 ml Output Total 725 ml 900 ml Balance -5 ml 531.5 ml -420 ml Intake Oral 720 ml 60 ml 480 ml IV Total 471.5 ml Output Urine Total 725 ml 900 ml # Voids 3 4 4 # Bowel Movements 0 1 0 Result Diagram: 06/24/17 0510 06/22/17 1315 Objective Remarks GENERAL: SKIN: Warm and dry. HEAD: Atraumatic. Normocephalic. EYES: Pupils equal and round. No scleral icterus. No injection or drainage. ENT: No nasal bleeding or discharge. Mucous membranes pink and moist. NECK: Trachea midline. No JVD. CARDIOVASCULAR: Regular rate and rhythm. RESPIRATORY: No accessory muscle use. Clear to auscultation. Breath sounds equal bilaterally. GASTROINTESTINAL: Abdomen soft, non-tender, nondistended. Hepatic and splenic margins not palpable. MUSCULOSKELETAL: Extremities without clubbing, cyanosis, or edema. No obvious deformities. NEUROLOGICAL: Awake and alert. No obvious cranial nerve deficits. Motor grossly within normal limits. Five out of 5 muscle strength in the arms and legs. Normal speech. PSYCHIATRIC: Appropriate mood and affect; insight and judgment normal. Assessment and Plan Assessment and Plan PE/DVT PLAN ANTICOAGULATION INCREASE ACTIVITY Lynnette Church MD Jun 24, 2017 16:01
[2017-06-24] MEDS: AZITHROMYCIN INJ 500 MG in SODIUM CHLOR 0.9% 250 ML INJ 250 ML IV SCH (16:44)
--- NOTE | 2017-06-24 19:03 | PD.ONC.PN ---
Subjective Subjective Remarks Patient reports continued difficulty breathing and pain with inspiration especially on the left side along his left shoulder blade. He reports having had a tarry black bowel movement earlier today. Denies noting any overt bleeding. Continues to have fevers of up to 101.5F. Objective Data Date Time Temp Pulse Resp B/P (MAP) Pulse Ox O2 Delivery O2 Flow Rate FiO2 06/24/17 16:00 98.4 89 16 142/94 (110) 96 06/24/17 15:13 93 Nasal Cannula 2.00 06/24/17 12:00 96.0 76 16 157/96 (116) 97 06/24/17 12:00 98.6 91 14 142/96 (111) 96 06/24/17 08:00 99.6 113 14 120/103 (109) 95 06/24/17 04:00 99.5 88 20 131/82 (98) 95 06/24/17 00:00 98.8 83 20 123/82 (96) 95 06/23/17 23:00 81 06/23/17 20:00 94 21 06/23/17 20:00 101.0 94 20 135/87 (103) 96 06/24/17 06/24/17 06/24/17 07:00 15:00 23:00 Intake Total 480 ml 240 ml Output Total 900 ml Balance -420 ml 240 ml Result Diagram: 06/24/17 0510 06/22/17 1315 Laboratory Results Laboratory Tests Test 06/23/17 20:54 06/24/17 03:30 06/24/17 05:10 06/24/17 09:20 Activated Partial Thromboplast Time 47.7 SEC 38.9 SEC 45.0 SEC White Blood Count 10.5 TH/MM3 Red Blood Count 3.77 MIL/MM3 Hemoglobin 10.4 GM/DL Hematocrit 32.1 % Mean Corpuscular Volume 85.2 FL Mean Corpuscular Hemoglobin 27.7 PG Mean Corpuscular Hemoglobin Concent 32.5 % Red Cell Distribution Width 18.5 % Platelet Count 500 TH/MM3 Mean Platelet Volume 7.2 FL Neutrophils (%) (Auto) 63.8 % Lymphocytes (%) (Auto) 20.1 % Monocytes (%) (Auto) 8.7 % Eosinophils (%) (Auto) 7.1 % Basophils (%) (Auto) 0.3 % Neutrophils # (Auto) 6.8 TH/MM3 Lymphocytes # (Auto) 2.1 TH/MM3 Monocytes # (Auto) 0.9 TH/MM3 Eosinophils # (Auto) 0.7 TH/MM3 Basophils # (Auto) 0.0 TH/MM3 CBC Comment DIFF FINAL Differential Comment Test 06/24/17 16:00 Activated Partial Thromboplast Time 42.9 SEC Culture Results Microbiology Date/Time Source Procedure Growth Status 06/21/17 22:05 Blood Peripheral Aerobic Blood Culture - Preliminary NO GROWTH IN 3 DAYS Resulted 06/21/17 22:05 Blood Peripheral Anaerobic Blood Culture - Preliminary NO GROWTH IN 3 DAYS Resulted 06/21/17 21:50 Blood Peripheral Aerobic Blood Culture - Preliminary NO GROWTH IN 3 DAYS Resulted 06/21/17 21:50 Blood Peripheral Anaerobic Blood Culture - Preliminary NO GROWTH IN 3 DAYS Resulted 06/22/17 16:00 Stool Stool Stool Occult Blood (CRISTY) - Final HEMOCCULT NEGATIVE Complete Administered Medications Medications (Trade) Dose Ordered Sig/Zackary Route PRN Reason Start Time Stop Time Status Last Admin Dose Admin Promethazine HCl/ Codeine (Phenergan-Codeine Liq) 5 ml Q6H PRN PO cough 06/21/17 15:30 06/24/17 13:05 Ceftriaxone Sodium 1000 mg/ Sodium Chloride 100 ml @ 200 mls/hr Q24H IV 06/21/17 16:00 06/24/17 15:53 Azithromycin 500 mg/Sodium Chloride 250 ml @ 250 mls/hr Q24H IV 06/21/17 17:00 06/24/17 16:44 Acetaminophen (Tylenol) 650 mg Q4H PRN PO fever > 101/RAMOS 06/21/17 21:30 06/24/17 09:07 Lorazepam (Ativan) 1 mg Q4H PRN PO CIWA 8 - 10 06/22/17 07:00 06/23/17 18:18 Ondansetron HCl (Zofran Inj) 4 mg Q6HR PRN IV PUSH nausea 06/22/17 13:15 06/24/17 06:09 Heparin Sodium (Porcine) (Heparin Inj) 2,500 units UNSCH PRN IV PUSH aPTT 25 to 39 06/22/17 14:15 06/23/17 16:09 Gabapentin (Neurontin) 800 mg BID PO 06/24/17 09:00 2/26/18 09:08 Lorazepam (Ativan) 1 mg BID PO 06/24/17 09:00 06/24/17 09:08 Tramadol HCl (Ultram) 50 mg Q8HR PO 06/24/17 08:45 06/24/17 13:04 Guaifenesin (Mucinex Er) 600 mg BID PO 06/24/17 13:00 06/24/17 13:02 Albuterol/ Ipratropium (Duoneb Neb) 1 ampule Q6HR NEB NEB 06/24/17 16:00 06/24/17 15:10 Objective Remarks GENERAL: Well-nourished, well-developed patient. Young man laying in bed, [place] to be no acute distress, speaks in full sentences. SKIN: Warm and dry. HEAD: Normocephalic. EYES: No scleral icterus. No injection or drainage. NECK: Supple, trachea midline. No JVD or lymphadenopathy. LYMPHATIC: No adenopathy. CARDIOVASCULAR: Prominent heart sounds, S1 and S2 normal murmurs or gallops. RESPIRATORY: Decreased bibasilar breath sounds more pronounced over the left base. GASTROINTESTINAL: Abdomen soft, non-tender, nondistended. Obese belly, postsurgical changes noted. EXTREMITIES: No cyanosis, or edema. MUSCULOSKELETAL: Adequate muscle tone. NEUROLOGICAL: No obvious focal deficit. Awake, alert, and oriented x3. PSYCHIATRIC: Appropriate mood and affect; insight and judgment normal. Assessment/Plan Assessment 41-year-old male presenting with bilateral pulmonary emboli associated or chest pain, found to have lower extremity deep venous thromboses on both sides. Previous history of gastric bypass surgery and right knee surgery (not total knee replacement). Reports having had symptoms of heaviness of his legs and pain waist down going back several months. Has been started on therapeutic anticoagulation with heparin infusion. Was being transitioned to oral Eliquis as of this morning. He reports having had at least one black tarry stool yesterday. Stool for occult blood testing was negative on 06/22/2017. Plan 1. Pulmonary emboli associated deep venous thromboses: Prothrombotic workup is pending at this time. 2. I discontinued heparin drip and start him on Lovenox. 3. Repeat stool for occult blood testing. 4. I will hold Eliquis for now until we confirm no ongoing GI bleeding. 5. Fevers: Likely secondary to pulmonary infarction secondary to pulmonary emboli. Madhu Jernigan MD Jun 24, 2017 19:03
[2017-06-24] MEDS: ENOXAPARIN SODIUM 100 MG/ML SYRINGE SQ SCH (20:38)
[2017-06-25] VITALS (8 sets, daily range): BP systolic 122–146; BP diastolic 77–100; PULSE 77–114; RESP 20–24; TEMP 98.1–99.1; O2SAT 93–97
[2017-06-25] MEDS: RESP: ALBUTEROL 2.5 MG/IPRATROPIUM 0.5 MG NEB (SCH) NEB ×3 (04:00→20:00)
[2017-06-25] MEDS: traMADol HCL 50 MG TAB PO SCH ×3 (06:01→20:52)
[2017-06-25 07:07] LABS: AUTOMATED NEUTROPHIL # 6.4 TH/MM3 (1.8-7.7); BASOPHIL # 0.1 TH/MM3 (0-0.2); BASOPHIL % 1.5 % (0.0-2.0); EOSINOPHIL # 0.7 TH/MM3 (0-0.4); EOSINOPHIL % 7.7 % (0.0-4.0); HEMATOCRIT 32.2 % (39.0-51.0); HEMOGLOBIN 10.4 GM/DL (13.0-17.0); LYMPH % 17.9 % (9.0-44.0); LYMPHOCYTE # 1.7 TH/MM3 (1.0-4.8); MEAN CELL VOLUME 85.6 FL (80.0-100.0); MEAN CORPUSCULAR HEMOGLOBIN 27.6 PG (27.0-34.0); MEAN CORPUSCULAR HGB CONC 32.2 % (32.0-36.0); MEAN PLATELET VOLUME 7.4 FL (7.0-11.0); MONO % 7.1 % (0.0-8.0); MONOCYTE # 0.7 TH/MM3 (0-0.9); NEUT % 65.8 % (16.0-70.0); PLATELET COUNT 609 TH/MM3 (150-450); RED BLOOD COUNT 3.76 MIL/MM3 (4.50-5.90); RED CELL DISTRIBUTION WIDTH 19.8 % (11.6-17.2); WHITE BLOOD COUNT 9.6 TH/MM3 (4.0-11.0)
[2017-06-25 07:16] LABS: CHLORIDE 108 MEQ/L (98-107); SODIUM (NA) 142 MEQ/L (136-145)
[2017-06-25 07:27] LABS: ALBUMIN 2.3 GM/DL (3.4-5.0)
[2017-06-25 07:28] LABS: BICARBONATE 25.3 MEQ/L (21.0-32.0); BLOOD UREA NITROGEN 8 MG/DL (7-18); CALCIUM 8.1 MG/DL (8.5-10.1); GLUCOSE,RANDOM 82 MG/DL (74-106); MAGNESIUM 2.1 MG/DL (1.5-2.5)
[2017-06-25 07:30] LABS: ALT (GPT) 19 U/L (12-78); AST (GOT) 18 U/L (15-37)
[2017-06-25 07:31] LABS: CREATININE 0.72 MG/DL (0.60-1.30); GLOMERULAR FILTRATION RATE 120 ML/MIN (>89); PHOSPHORUS 3.9 MG/DL (2.5-4.9); TOTAL BILIRUBIN ADULT 0.3 MG/DL (0.2-1.0); TOTAL PROTEIN 6.5 GM/DL (6.4-8.2)
[2017-06-25 07:32] LABS: ALKALINE PHOSPHATASE 183 U/L (45-117)
[2017-06-25] MEDS: LORazepam 1 MG TAB PO SCH ×2 (08:48→20:53)
[2017-06-25] MEDS: GABAPENTIN 400 MG CAP PO SCH ×2 (08:48→20:52)
[2017-06-25] MEDS: guaiFENesin E.R. 600 MG TAB PO SCH ×2 (08:48→20:52)
[2017-06-25] MEDS: ENOXAPARIN SODIUM 100 MG/ML SYRINGE SQ SCH ×2 (08:49→20:53)
[2017-06-25] MEDS: PROMETHAZINE/CODEINE 6.25 MG/10 MG/5 ML CUP PO PRN ×2 (08:49→17:07)
[2017-06-25] MEDS ORDERED: RESP: ALBUTEROL 2.5 MG/IPRATROPIUM 0.5 MG NEB (PRN) NEB (09:15)
[2017-06-25 10:03] LABS: FREE T4 1.14 NG/DL (0.76-1.46)
--- NOTE | 2017-06-25 14:21 | ECHRPT ---
Indication: sob bilateral pulm emb CONCLUSIONS Normal left ventricular size. Estimated ejection fraction 60-65%. The left atrial size is mildly dilated. Mild mitral valve regurgitation. There is mild tricuspid valve regurgitation. The estimated pulmonary arterial pressure is 46 mmHg. BP: / HR: Rhythm: MEASUREMENTS (Male / Female) Normal Values Technical Quality:Good 2D ECHO LV Diastolic Diameter PLAX 5.1 cm 4.2 - 5.9 / 3.9 - 5.3 cm LV Systolic Diameter PLAX 3.6 cm IVS Diastolic Thickness 1.3 cm 0.6 - 1.0 / 0.6 - 0.9 cm LVPW Diastolic Thickness 1.2 cm 0.6 - 1.0 / 0.6 - 0.9 cm LV Relative Wall Thickness 0.5 RV Internal Dim ED PLAX 3.5 cm M-MODE Aortic Root Diameter MM 3.3 cm LA Systolic Diameter MM 4.6 cm LA Ao Ratio MM 1.4 AV Cusp Separation MM 2.0 cm DOPPLER Mitral E Point Velocity 81.9 cm/s Mitral A Point Velocity 74.0 cm/s Mitral E to A Ratio 1.1 LV E' Lateral Velocity 9.8 cm/s Mitral E to LV E' Lateral Ratio 8.4 LV E' Septal Velocity 8.7 cm/s Mitral E to LV E' Septal Ratio 9.4 TR Peak Velocity 299.0 cm/s TR Peak Gradient 35.8 mmHg Right Atrial Pressure 10.0 mmHg Pulmonary Artery Systolic Pressu 45.8 mmHg Right Ventricular Systolic Press 45.8 mmHg FINDINGS LEFT VENTRICLE Normal left ventricular size. The left ventricular systolic function is normal with an estimated ejection fraction in the range of 60-65%. RIGHT VENTRICLE Normal right ventricular size and systolic function. LEFT ATRIUM The left atrial size is mildly dilated. 4.6 cm RIGHT ATRIUM The right atrial size is normal. ATRIAL SEPTUM Normal atrial septal thickness without atrial level shunting by limited color doppler interrogation. AORTA The aortic root and proximal ascending aorta are normal in size on limited imaging. MITRAL VALVE Structurally normal mitral valve. Mild mitral valve regurgitation. AORTIC VALVE Trileaflet aortic valve. No aortic valve stenosis or regurgitation. TRICUSPID VALVE Structurally normal tricuspid valve. There is mild tricuspid valve regurgitation. The estimated pulmonary arterial pressure is 45.8 mmHg. PULMONARY VALVE No pulmonary valve regurgitation or stenosis. VESSELS The inferior vena cava is normal in size. PERICARDIUM No pericardial effusion. Subha Gordon MD, FACC (Electronically Signed) Final Date:25 June 2017 14:20
[2017-06-25 15:44] LABS: HEMOGLOBIN A1C 5.3 % (4.3-6.0)
[2017-06-25] MEDS: cefTRIAXone INJ 1,000 MG in SODIUM CHLORIDE 0.9% INJ 100 ML IV SCH (17:07)
--- NOTE | 2017-06-25 17:12 | PD.ONC.PN ---
Subjective Subjective Remarks Denies any bleeding. Feels better. Still has pain with respiration on L lower lung. Objective Data Date Time Temp Pulse Resp B/P (MAP) Pulse Ox O2 Delivery O2 Flow Rate FiO2 06/25/17 14:23 95 21 06/25/17 12:00 98.5 82 20 134/82 (99) 95 06/25/17 08:16 87 06/25/17 08:00 99.0 95 24 146/100 (115) 93 06/25/17 07:01 18 06/25/17 04:00 84 06/25/17 04:00 98.4 113 20 134/91 (105) 95 06/25/17 00:00 98.1 108 20 122/77 (92) 94 06/24/17 21:08 96 21 06/24/17 20:00 84 06/24/17 20:00 101.0 109 20 133/85 (101) 94 06/25/17 06/25/17 06/25/17 07:00 15:00 23:00 Intake Total 240 ml 300 ml Output Total 400 ml Balance 240 ml -100 ml Result Diagram: 06/25/17 0543 06/25/17 0543 Laboratory Results Laboratory Tests Test 06/25/17 05:43 White Blood Count 9.6 TH/MM3 Red Blood Count 3.76 MIL/MM3 Hemoglobin 10.4 GM/DL Hematocrit 32.2 % Mean Corpuscular Volume 85.6 FL Mean Corpuscular Hemoglobin 27.6 PG Mean Corpuscular Hemoglobin Concent 32.2 % Red Cell Distribution Width 19.8 % Platelet Count 609 TH/MM3 Mean Platelet Volume 7.4 FL Neutrophils (%) (Auto) 65.8 % Lymphocytes (%) (Auto) 17.9 % Monocytes (%) (Auto) 7.1 % Eosinophils (%) (Auto) 7.7 % Basophils (%) (Auto) 1.5 % Neutrophils # (Auto) 6.4 TH/MM3 Lymphocytes # (Auto) 1.7 TH/MM3 Monocytes # (Auto) 0.7 TH/MM3 Eosinophils # (Auto) 0.7 TH/MM3 Basophils # (Auto) 0.1 TH/MM3 CBC Comment AUTO DIFF Differential Comment AUTO DIFF CONFIRMED Platelet Estimate HIGH Platelet Morphology Comment NORMAL Blood Urea Nitrogen 8 MG/DL Creatinine 0.72 MG/DL Random Glucose 82 MG/DL Total Protein 6.5 GM/DL Albumin 2.3 GM/DL Calcium Level 8.1 MG/DL Phosphorus Level 3.9 MG/DL Magnesium Level 2.1 MG/DL Alkaline Phosphatase 183 U/L Aspartate Amino Transf (AST/SGOT) 18 U/L Alanine Aminotransferase (ALT/SGPT) 19 U/L Total Bilirubin 0.3 MG/DL Sodium Level 142 MEQ/L Potassium Level 3.3 MEQ/L Chloride Level 108 MEQ/L Carbon Dioxide Level 25.3 MEQ/L Anion Gap 9 MEQ/L Estimat Glomerular Filtration Rate 120 ML/MIN Hemoglobin A1c 5.3 % Free Thyroxine 1.14 NG/DL Thyroid Stimulating Hormone 3rd Gen 1.450 uIU/ML Culture Results Microbiology Date/Time Source Procedure Growth Status 06/25/17 15:58 Stool Stool Stool Occult Blood (CRISTY) Pending Received Administered Medications Medications (Trade) Dose Ordered Sig/Zackary Route PRN Reason Start Time Stop Time Status Last Admin Dose Admin Promethazine HCl/ Codeine (Phenergan-Codeine Liq) 5 ml Q6H PRN PO cough 06/21/17 15:30 06/25/17 08:49 Ceftriaxone Sodium 1000 mg/ Sodium Chloride 100 ml @ 200 mls/hr Q24H IV 06/21/17 16:00 06/24/17 15:53 Azithromycin 500 mg/Sodium Chloride 250 ml @ 250 mls/hr Q24H IV 06/21/17 17:00 06/24/17 16:44 Acetaminophen (Tylenol) 650 mg Q4H PRN PO fever > 101/RAMOS 06/21/17 21:30 06/24/17 20:37 Lorazepam (Ativan) 1 mg Q4H PRN PO CIWA 8 - 10 06/22/17 07:00 06/23/17 18:18 Ondansetron HCl (Zofran Inj) 4 mg Q6HR PRN IV PUSH nausea 06/22/17 13:15 06/24/17 06:09 Gabapentin (Neurontin) 800 mg BID PO 06/24/17 09:00 06/25/17 08:48 Lorazepam (Ativan) 1 mg BID PO 06/24/17 09:00 06/25/17 08:48 Tramadol HCl (Ultram) 50 mg Q8HR PO 06/24/17 08:45 06/25/17 12:56 Guaifenesin (Mucinex Er) 600 mg BID PO 06/24/17 13:00 06/25/17 08:48 Enoxaparin Sodium (Lovenox Inj) 100 mg Q12H SQ 06/24/17 22:00 06/25/17 08:49 Objective Remarks GENERAL: Well-nourished, well-developed patient. Young man laying in bed. HEAD: Normocephalic. EYES: No scleral icterus. No injection or drainage. NECK: Supple, trachea midline. No JVD or lymphadenopathy. LYMPHATIC: No adenopathy. CARDIOVASCULAR: Prominent heart sounds, S1 and S2 normal murmurs or gallops. RESPIRATORY: Decreased bibasilar breath sounds more pronounced over the left base. GASTROINTESTINAL: Abdomen soft, non-tender, nondistended. Obese belly, postsurgical changes noted. EXTREMITIES: No cyanosis, or edema. MUSCULOSKELETAL: R knee osteoarthritic changes, prominent area from old injury. No swelling. NEUROLOGICAL: No obvious focal deficit. Awake, alert, and oriented x3. PSYCHIATRIC: Appropriate mood and affect; insight and judgment normal. Assessment/Plan Problem List: (1) Anemia, iron deficiency ICD Codes: D50.9 - Iron deficiency anemia, unspecified Status: Chronic Plan: h/o bypass surgery, check ferritin and B12 Poor absorption of iron. Noted anemia and reactive thrombocytosis Treat nutritional deficiency (2) DVT, bilateral lower limbs ICD Codes: I82.403 - Acute embolism and thrombosis of unspecified deep veins of lower extremity, bilateral Status: Acute Plan: Described events prior to dx. 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 Noted US finding. Agree with anticoagulation therapy atleast 6 months. Discussed at length the options for anticoagulant therapy Assessment 41-year-old male presenting with bilateral pulmonary emboli associated or chest pain, found to have lower extremity deep venous thromboses on both sides. Previous history of gastric bypass surgery and right knee surgery (not total knee replacement). Reports having had symptoms of heaviness of his legs and pain waist down going back several months. Has been started on therapeutic anticoagulation with heparin infusion. Was being transitioned to oral Eliquis as of this morning. He reports having had at least one black tarry stool yesterday. Stool for occult blood testing was negative on 06/22/2017. Plan 1. Pulmonary emboli associated deep venous thromboses: Prothrombotic workup is pending at this time. 2. Continue Lovenox, transition to Coumadin 3. Check B12 and ferritin 4. Give information on Coumadin 5. Follow up with Dr. Jernigan as out pt. Lindsey Granger MD Jun 25, 2017 17:12
[2017-06-25] MEDS: ONDANSETRON HCL 4 MG/2 ML VIAL IV PUSH PRN (17:57)
[2017-06-25] MEDS: AZITHROMYCIN INJ 500 MG in SODIUM CHLOR 0.9% 250 ML INJ 250 ML IV SCH (17:57)
--- NOTE | 2017-06-25 19:02 | HHI.PR ---
Subjective Remarks ALERT NO SOB Objective Vital Signs Date Time Temp Pulse Resp B/P (MAP) Pulse Ox O2 Delivery O2 Flow Rate FiO2 06/25/17 16:00 99.0 77 20 133/94 (107) 95 06/25/17 14:23 95 21 06/25/17 13:56 18 06/25/17 12:00 98.5 82 20 134/82 (99) 95 06/25/17 08:16 87 06/25/17 08:00 99.0 95 24 146/100 (115) 93 06/25/17 04:00 84 06/25/17 04:00 98.4 113 20 134/91 (105) 95 06/25/17 00:00 98.1 108 20 122/77 (92) 94 06/24/17 21:08 96 21 06/24/17 20:00 84 06/24/17 20:00 101.0 109 20 133/85 (101) 94 I/O 06/24/17 06/24/17 06/24/17 06/25/17 06/25/17 06/25/17 07:00 15:00 23:00 07:00 15:00 23:00 Intake Total 480 ml 240 ml 240 ml 300 ml Output Total 900 ml 400 ml Balance -420 ml 240 ml 240 ml -100 ml Intake Oral 480 ml 240 ml 240 ml 300 ml Output Urine Total 900 ml 400 ml # Voids 4 3 2 2 1 # Bowel Movements 0 0 1 Result Diagram: 06/25/17 0543 06/25/17 0543 Objective Remarks GENERAL: SKIN: Warm and dry. HEAD: Atraumatic. Normocephalic. EYES: Pupils equal and round. No scleral icterus. No injection or drainage. ENT: No nasal bleeding or discharge. Mucous membranes pink and moist. NECK: Trachea midline. No JVD. CARDIOVASCULAR: Regular rate and rhythm. RESPIRATORY: No accessory muscle use. Clear to auscultation. Breath sounds equal bilaterally. GASTROINTESTINAL: Abdomen soft, non-tender, nondistended. Hepatic and splenic margins not palpable. MUSCULOSKELETAL: Extremities without clubbing, cyanosis, or edema. No obvious deformities. NEUROLOGICAL: Awake and alert. No obvious cranial nerve deficits. Motor grossly within normal limits. Five out of 5 muscle strength in the arms and legs. Normal speech. PSYCHIATRIC: Appropriate mood and affect; insight and judgment normal. Assessment and Plan Assessment and Plan PE/DVT PLAN ANTICOAGULATION INCREASE ACTIVITY OK FOR D/C AM IF STABLE Lynnette Church MD Jun 25, 2017 19:02
[2017-06-25 22:03] LABS: FERRITIN 177 NG/ML (26-388)
--- NOTE | 2017-06-25 22:35 | HHI.PR ---
Subjective Remarks Nursing denies any deterioration since last night. Patient did have a temp of 101 at 8 PM last night. However he says he feels fine otherwise. Says his shortness of breath and chest pain are much improved. Denies any further black tarry stools in the last 24 hours. Objective Vital Signs Date Time Temp Pulse Resp B/P (MAP) Pulse Ox O2 Delivery O2 Flow Rate FiO2 06/25/17 20:00 94 21 06/25/17 20:00 99.1 114 20 129/91 (104) 97 06/25/17 16:00 99.0 77 20 133/94 (107) 95 06/25/17 14:23 95 21 06/25/17 13:56 18 06/25/17 12:00 98.5 82 20 134/82 (99) 95 06/25/17 08:16 87 06/25/17 08:00 99.0 95 24 146/100 (115) 93 06/25/17 04:00 84 06/25/17 04:00 98.4 113 20 134/91 (105) 95 06/25/17 00:00 98.1 108 20 122/77 (92) 94 I/O 06/24/17 06/24/17 06/24/17 06/25/17 06/25/17 06/25/17 07:00 15:00 23:00 07:00 15:00 23:00 Intake Total 480 ml 240 ml 240 ml 300 ml 650 ml Output Total 900 ml 400 ml Balance -420 ml 240 ml 240 ml -100 ml 650 ml Intake Oral 480 ml 240 ml 240 ml 300 ml 300 ml IV Total 350 ml Output Urine Total 900 ml 400 ml # Voids 4 3 2 2 3 # Bowel Movements 0 0 2 Result Diagram: 06/25/17 0543 06/25/17 0543 Objective Remarks Coarse breath sounds bilaterally, unlabored breathing, no acute distress, no cyanosis A/P Assessment and Plan Bilateral pulmonary emboli and bilateral DVT -Lovenox to be continued for now given possibility of GI bleed. Discussed case with hematology, to repeat stool Hemoccult, if negative and h/h stable, patient can be discharged. Fevers have not recurred since last night, hematology suspects this was due to possible pulmonary infarction. Left lower lobe pneumonia, continue Rocephin and Zithromax, blood cultures have been negative Tee Cordova MD Jun 25, 2017 22:35
[2017-06-26 04:00] VITALS: BP 138/92; PULSE 80; RESP 16; TEMP 98.1; O2SAT 94
[2017-06-26] MEDS: traMADol HCL 50 MG TAB PO SCH ×2 (06:01→14:07)
[2017-06-26 07:50] VITALS: BP 126/82; PULSE 100; RESP 20; TEMP 96; O2SAT 93
[2017-06-26] MEDS: RESP: ALBUTEROL 2.5 MG/IPRATROPIUM 0.5 MG NEB (SCH) NEB ×2 (08:00→14:00)
[2017-06-26] MEDS: guaiFENesin E.R. 600 MG TAB PO SCH (08:57)
[2017-06-26] MEDS: GABAPENTIN 400 MG CAP PO SCH (08:57)
[2017-06-26] MEDS: LORazepam 1 MG TAB PO SCH (08:57)
[2017-06-26] MEDS: ONDANSETRON HCL 4 MG/2 ML VIAL IV PUSH PRN (08:57)
[2017-06-26] MEDS: PROMETHAZINE/CODEINE 6.25 MG/10 MG/5 ML CUP PO PRN (08:57)
[2017-06-26] MEDS: ENOXAPARIN SODIUM 100 MG/ML SYRINGE SQ SCH (08:58)
[2017-06-26 09:03] VITALS: PULSE 63
[2017-06-26] MEDS ORDERED: POTASSIUM CHLORIDE 10 MEQ CONTROLLED RELEASE TAB PO ONE (11:00)
[2017-06-26] MEDS ORDERED: ENOX100P SQ (11:04)
[2017-06-26 11:51] VITALS: BP 135/82; PULSE 97; RESP 20; TEMP 97.8; O2SAT 93
[2017-06-26] MEDS ORDERED: WARF-23 PO (11:59)
[2017-06-26] MEDS ORDERED: CEFD300C PO (11:59)
--- NOTE | 2017-06-26 11:59 | HHI.DCPOC ---
Discharge Care Plan Diagnosis: (1) Pulmonary emboli (2) DVT, bilateral lower limbs (3) Pneumonia (4) Encounter for monitoring coumadin therapy Additional Problems Have your regular doctor or bonded strand operator check your INR results within 3-5 days and adjust your Coumadin dose as warranted. Goals to Promote Your Health * To prevent worsening of your condition and complications * To maintain your health at the optimal level Directions to Meet Your Goals Take your medications as prescribed Follow your dietary instruction Follow activity as directed Keep your appointments as scheduled Take your immunizations and boosters as scheduled If your symptoms worsen call your PCP, if no PCP go to Urgent Care Center or Emergency Room Smoking is Dangerous to Your Health. Avoid second hand smoke Call the 24-hour hour crisis hotline for domestic abuse at Tee Cordova MD Jun 26, 2017 11:59
--- NOTE | 2017-06-26 13:20 | HHI.DS ---
Discharge Summary Admission Date Jun 21, 2017 at 13:40 Discharge Date: Jun 26, 2017 Admitting Diagnosis bilateral pulmonary emboli (1) Fever ICD Code: R50.9 - Fever, unspecified (2) Anxiety ICD Code: F41.9 - Anxiety disorder, unspecified (3) Chronic pain ICD Code: G89.29 - Other chronic pain (4) Pneumonia ICD Code: J18.9 - Pneumonia, unspecified organism (5) Pulmonary emboli ICD Code: I26.99 - Other pulmonary embolism without acute cor pulmonale (6) DVT, bilateral lower limbs ICD Code: I82.403 - Acute embolism and thrombosis of unspecified deep veins of lower extremity, bilateral Status: Acute Procedures NONE Brief History - From Admission 41 y/o WM admitted for pulmonary emboli. Pt was in his USOH until the last 3-4 wks ago when he began experiencing some back pain and chest pain. He did develop some shortness of breath that was intermittent. He noted his chest pain was 10/10 from last night; pain is pleuritic in nature. Pt denies any recent travels or sedentary activity. Denies any hx of cancer or VTEs in the past. CBC/BMP: 06/25/17 0543 06/25/17 0543 Significant Findings Laboratory Tests Test 06/23/17 15:02 06/23/17 18:43 06/23/17 20:54 06/24/17 03:30 Activated Partial Thromboplast Time 39.4 SEC (24.3-30.1) 47.7 SEC (24.3-30.1) 38.9 SEC (24.3-30.1) Test 06/24/17 05:10 06/24/17 09:20 06/24/17 16:00 06/25/17 05:43 Red Blood Count 3.77 MIL/MM3 (4.50-5.90) 3.76 MIL/MM3 (4.50-5.90) Hemoglobin 10.4 GM/DL (13.0-17.0) 10.4 GM/DL (13.0-17.0) Hematocrit 32.1 % (39.0-51.0) 32.2 % (39.0-51.0) Red Cell Distribution Width 18.5 % (11.6-17.2) 19.8 % (11.6-17.2) Platelet Count 500 TH/MM3 (150-450) 609 TH/MM3 (150-450) Monocytes (%) (Auto) 8.7 % (0.0-8.0) Eosinophils (%) (Auto) 7.1 % (0.0-4.0) 7.7 % (0.0-4.0) Eosinophils # (Auto) 0.7 TH/MM3 (0-0.4) 0.7 TH/MM3 (0-0.4) Activated Partial Thromboplast Time 45.0 SEC (24.3-30.1) 42.9 SEC (24.3-30.1) Platelet Estimate HIGH (NORMAL) Albumin 2.3 GM/DL (3.4-5.0) Calcium Level 8.1 MG/DL (8.5-10.1) Alkaline Phosphatase 183 U/L (45-117) Potassium Level 3.3 MEQ/L (3.5-5.1) Chloride Level 108 MEQ/L (98-107) Test 06/25/17 20:30 Imaging Last Impressions Lower Extremity Ultrasound 06/23/17 0000 Signed Impressions: Service Date/Time: Friday, June 23, 2017 12:19 - CONCLUSION: 1. There is bilateral DVT in the posterior tibial veins of the right and left lower extremities within the calf. 2. No evidence of DVT above the knee into the pelvis. Abhijit Muro MD PE at Discharge Coarse breath sounds bilaterally, unlabored breathing, no acute distress, no cyanosis Hospital Course Patient was admitted, started on anticoagulation for PEs and abx for PNA. He was also found to have bilateral lower extremity DVTs. He reported having some black tarry stools while inpatient but 2 Hemoccults were negative. Hematology was consulted and initiated a hypercoagulable workup and transition the patient to Lovenox. Patient remained afebrile afterwards and his blood cultures remained negative. He is tolerating p.o. intake well and his hemoglobin remained stable. He was counseled and transitioned to the Lovenox plus Coumadin regimen upon discharge. Patient was extensively counseled on the importance of Coumadin follow-up especially given that he will be on antibiotics for his pneumonia. He was educated on appropriate Lovenox dosing technique to administer himself at home for the first 5 days post discharge. Pt Condition on Discharge: Stable Discharge Disposition: Discharge Home Discharge Time: > 30 minutes Discharge Instructions DIET: Follow Instructions for: Coumadin (Warfarin) Diet Activities you can perform: Weight Bearing as Marcos Follow up Referrals: Oncology/Hematology - 3-5 Days with Madhu Jernigan MD PCP Follow-up - 3-5 Days New Medications: Cefdinir (Cefdinir) 300 Mg Cap 600 MG PO DAILY for Infection, #7 CAP 0 Refills Warfarin (Warfarin) 5 Mg Tab 5 MG PO DIRECTED for Blood Clot Prevention, #30 TAB 0 Refills 1 pill po daily for 5 days, then contact PCP for further dosing Enoxaparin Inj (Lovenox Inj) 100 Mg/Ml Syr 100 MG SQ Q12H for emboli, #12 INJECTION Continued Medications: Gabapentin (Gabapentin) 800 Mg Tab 800 MG PO BID, TAB 0 Refills Lorazepam (Ativan) 1 Mg Tab 1 MG PO BID, TAB 0 Refills Tramadol (Ultram) 50 Mg Tab 50 MG PO Q8H for Pain Management, TAB 0 Refills Tee Cordova MD Jun 26, 2017 13:20
[2017-06-26 14:58] VITALS: RESP 18
[2017-06-26 19:53] LABS: DRVVT 1:1 MIX ND (CORRECTED); DRVVT CONFIRM NEGATIVE (NEGATIVE); HEXAGONAL PHASE CONFIRM POSITIVE (NEGATIVE)
[2017-06-27 03:52] LABS: BETA2-GLYCOPROTEIN IGA <9 SAU (< OR = 20); BETA2-GLYCOPROTEIN IGG <9 SGU (< OR = 20); BETA2-GLYCOPROTEIN IGM <9 SMU (< OR = 20)
[2017-06-27 16:10] LABS: CARDIOLIPIN IGG AB <9.4 GPL; CARDIOLIPIN IGM AB <9.4 MPL
[2017-06-28 03:51] LABS: PHOSPHATIDYLSERINE AB IGA LESS THAN 20.0 U/mL (< 20.0); PHOSPHATIDYLSERINE AB IGG LESS THAN 10.0 U/mL (< 11.0); PHOSPHATIDYLSERINE AB IGM LESS THAN 25.0 U/mL (< 25.0)
[2017-06-28 23:54] LABS: HOMOCYSTEINE 13.9 umol/L (<11.4)
== END 2017-06-26 14:58 | disposition home or self-care (01) | DRG 175 ==
LOC: PHEDDLT 13:30 → PHEDA 13:40 → PH3B 13:40
PROVIDERS: ADMIT Hospitalist; ATTEND Hospitalist
DX: I26.99 Other pulmonary embolism without acute cor pulmonale (principal); J18.9 Pneumonia, unspecified organism; I82.443 Acute embolism and thrombosis of tibial vein, bilateral; D50.9 Iron deficiency anemia, unspecified; E63.9 Nutritional deficiency, unspecified; F17.210 Nicotine dependence, cigarettes, uncomplicated; G62.9 Polyneuropathy, unspecified; G25.81 Restless legs syndrome; F41.9 Anxiety disorder, unspecified; R19.5 Other fecal abnormalities; Z98.84 Bariatric surgery status
CPT/HCPCS: 80053; 81001; 81240; 81241; 82272; 82607; 82728; 83036; 83090; 83605; 83735; 84100; 84439; 84443; 85025; 85027; 85597; 85598; 85610; 85613; 85670; 85730; 86038; 86146; 86147; 86148; 87040; 93306; 93970; 94150; 94640; 94664; J0456; J0696; J1644; J1650; J2405; J7050

== ENCOUNTER 2017-07-08 14:30 | Emergency (ER) | payer BC ==
[~2017-07-08 14:30] MED LIST changes: +CEFD300C PO; +CHLO25CA9 PO; -CYCL10TA PO; +ENOX100P SQ; -GABA600T PO; +GABA800T PO; -HEPARIN-D5W 25,000 U/250 ML 250 ML IV PRN; +LORA-474 PO; +TRAM50 PO; +WARF-23 PO
== END 2017-07-08 15:11 | disposition left against medical advice (07) ==
LOC: PHED 14:30
DX: Z53.21 Procedure and treatment not carried out due to patient leaving prior to being seen by health care provider (principal)
CPT/HCPCS: 99281